=== PATIENT | female | born 1965 | race African-American/Black ===

== ENCOUNTER 2016-12-26 00:26 | Emergency (ER) | payer MEDICARE, MEDICAID ==
[~2016-12-26] VITALS: Ht 172.7 cm; Wt 136.0 kg
[2016-12-26 00:30] VITALS: BP 126/75
== END 2016-12-26 04:00 | disposition left against medical advice (07) ==
LOC: ER 00:37
DX: Z53.21 Procedure and treatment not carried out due to patient leaving prior to being seen by health care provider (principal)